=== PATIENT | female | born 1995 | race Hispanic/Latino ===

== ENCOUNTER 2024-10-28 10:00 | Emergency (ER) | payer SELFPAY ==
[2024-10-28] MEDS ORDERED: FLUORESCEIN SODIUM 1 MG/WRAP ONE ×2 (10:17→10:30)
[2024-10-28] MEDS ORDERED: TETRACAINE HCL 0.5% 4ML OPTH ONE (10:17)
--- NOTE | 2024-10-28 10:45 | EDPHYS ---
Physician Documentation [facility] Name: Danuta Mccall Age: 29 yrs Sex: Female : 1995 Arrival Date: 10/28/2024 Time: 10:00 Bed 13 Private MD: ED Physician Ben Elizondo HPI: 10/28 10:06 This 29 yrs old Female presents to ER via Unassigned with complaints of eye kb pain. 10:06 Pt is a 29 year old female who presents for pain, burning to both eyes that started kb last night. Reports watery eyes. States she may have scratched her right eye when she took her contact out, then it started getting red and painful. States the redness and irritation has spread to left eye this morning. Historical: - Allergies: 10:13 No Known Allergies; hb - Home Meds: 10:13 None [Active]; hb - PMHx: 10:13 None; hb - PSHx: 10:13 None; hb - Immunization history:: Adult Immunizations up to date. - Infectious Disease History:: Denies. - Social history:: Smoking status: Reported history of juuling and/or vaping. ROS: 10:43 Constitutional: As per HPI kb Exam: 10:43 Constitutional: This is a well developed, well nourished patient who is awake, alert, kb and in no acute distress. Head/Face: Normocephalic, atraumatic. ENT: Moist Mucous membranes Cardiovascular: Regular rate Respiratory: Respirations even and unlabored. No increased work of breathing. Talking in full sentences Skin: Warm, dry with normal turgor. Normal color. MS/ Extremity: Pulses equal, no cyanosis. Neurovascular intact. Full, normal range of motion. Neuro: Awake and alert, GCS 15, oriented to person, place, time, and situation. 10:43 Eyes: Periorbital structures: swelling, that is mild, on the right upper eyelid and right lower eyelid, Pupils: equal, round, and reactive to light and accomodation, Extraocular movements: intact throughout, Conjunctiva: injected, bilaterally, right worse than left, Corneas: abrasion, that is small, on the right, at 7 o'clock, foreign body, is not appreciated, a fluorescein strip employed to appreciate the findings, Vital Signs: 10:11 BP 132 / 95; Pulse 78; Resp 16; Temp 98.2(O); Pulse Ox 100% on R/A; Weight 72.57 kg; hb Height 5 ft. 4 in. ; Pain 10/10; 10:58 BP 128 / 90; Pulse 72; Resp 18; Pulse Ox 99% ; ko1 10:11 Body Mass Index 27.46 (72.57 kg, 162.56 cm) hb 10:11 Pain Scale: Adult hb MDM: 10:03 Medical Screening Exam initiated kb 10:43 Differential diagnosis: Corneal abrasion of Corneal ulcer of Foreign body in Acute kb iritis of Acute glaucoma in Data reviewed: vital signs, nurses notes. Historians other than the Patient: Parent: mother. Counseling: I had a detailed discussion with the patient and/or guardian regarding the historical points, exam findings, and any diagnostic results supporting the discharge/admit diagnosis, the need for outpatient follow up, an opthalmologist, to return to the emergency department if symptoms worsen or persist or if there are any questions or concerns that arise at home. 10/28 10:13 Order name: Eye Tray; Complete Time: 10:23 kb 10/28 10:13 Order name: Fluoresene Opth strip; Complete Time: 10:24 kb Administered Medications: 10:47 Drug: Tetracaine Ophthalmic Drops 0.5 % 1 drops Ophthalmic once {Note: given by fernanda gutierrez.} Route: Ophthalmic; Site: right eye; 10:48 Drug: diphenhydrAMINE PO 25 mg PO once Route: PO; ko1 11:00 Follow up: Response: No adverse reaction; Medication administered at discharge. ko1 10:48 Drug: Famotidine PO 20 mg PO once Route: PO; ko1 11:00 Follow up: Response: No adverse reaction; Medication administered at discharge. ko1 Disposition Summary: 10/28/24 10:44 Discharge Ordered Notes: Location: Home Condition: Stable Diagnosis - Injury of conjunctiva and corneal abrasion without foreign body, right eye kb - Unspecified acute conjunctivitis, bilateral kb Followup: kb - With: Emergency Department - When: As needed - Reason: Worsening of condition Followup: kb - With: Private Physician - When: 2 - 3 days - Reason: Recheck today's complaints, Continuance of care, Re-evaluation by your physician Discharge Instructions: - Discharge Summary Sheet kb - How to Use Eye Drops and Eye Ointments kb - Corneal Abrasion, [id number] kb - Bacterial Conjunctivitis, Adult, [id number] kb Forms: - Medication Reconciliation Form kb - Antibiotic Education kb - Prescription Opioid Use kb - Patient Portal Instructions kb - Leadership Thank You Letter kb Prescriptions: - Vigamox 0.5 % Ophthalmic Drops - instill 1 drop OPHTHALMIC route every 8 hours for 7 days; 5 milliliter; kb Refills: 0, Product Selection Permitted Signatures: Asuncion Cabrera FNP-Lianne SALOMON-Lisa Mckeon, RN RN Carine Roy, RN RN ko1 Corrections: (The following items were deleted from the chart) 10:43 10:06 Pt is a 29 year old female who presents for pain, burning to both eyes that kb started last night. Reports watery eyes. States she may have scratched her eyes when she took out her contacts. . kb
--- NOTE | 2024-10-28 10:45 | ER ---
Nurse's Notes [facility] [place], [place] Name: Danuta Mccall Age: 29 yrs Sex: Female : 1995 Arrival Date: 10/28/2024 Time: 10:00 Bed 13 Private MD: Diagnosis: Injury of conjunctiva and corneal abrasion without foreign body, right eye;Unspecified acute conjunctivitis, bilateral Presentation: 10/28 10:11 Chief complaint: Headache, bilateral eye pain and burning x 2 days. Mild right hb periorbital swelling and clear drainage noted form bilateral eyes. Coronavirus screen: At this time, the client does not indicate any symptoms associated with coronavirus-19. Ebola Screen: No symptoms or risks identified at this time. Mechanism of Injury: No Mechanism of Injury. The patient denies any loss of vision. Initial Sepsis Screen: Does the patient meet any 2 criteria? No. Patient's initial sepsis screen is negative. Does the patient have a suspected source of infection? No. Patient's initial sepsis screen is negative. Risk Assessment: Do you want to hurt yourself or someone else? Patient reports no desire to harm self or others. Onset of symptoms was October 27, 2024. 10:11 Method Of Arrival: Ambulatory hb 10:11 Acuity: [place] 4 hb Historical: - Allergies: 10:13 No Known Allergies; hb - Home Meds: 10:13 None [Active]; hb - PMHx: 10:13 None; hb - PSHx: 10:13 None; hb - Immunization history:: Adult Immunizations up to date. - Infectious Disease History:: Denies. - Social history:: Smoking status: Reported history of juuling and/or vaping. Screenin:58 [facility] ED Fall Risk Assessment (Adult) History of falling in the last 3 months, ko1 including since admission No falls in past 3 months (0 pts) Confusion or Disorientation No (0 pts) Intoxicated or Sedated No (0 pts) Impaired Gait No (0 pts) Mobility Assist Device Used No (0 pt) Altered Elimination No (0 pt) Score/Fall Risk Level 0 - 2 = Low Risk Oriented to surroundings, Maintained a safe environment, Educated pt \T\ family on fall prevention, incl call for assistance when getting out of bed, Assessed \T\ reinforced patient's understanding of fall precautions, Hourly rounding (assess needs \T\ fall precautionary measures) done. Abuse screen: Denies threats or abuse. Denies injuries from another. Nutritional screening: No deficits noted. Tuberculosis screening: No symptoms or risk factors identified. Assessment: 10:35 General: Appears in no apparent distress. uncomfortable, Behavior is calm, cooperative, ko1 appropriate for age. Pain: Complains of pain in right eye. Neuro: No deficits noted. Cardiovascular: No deficits noted. Respiratory: No deficits noted. GI: No deficits noted. : No deficits noted. No signs and/or symptoms were reported regarding the genitourinary system. EENT: Eyes Sclera/Cornea. Derm: No deficits noted. No signs and/or symptoms reported regarding the dermatologic system. Musculoskeletal: No deficits noted. No signs and/or symptoms reported regarding the musculoskeletal system. Vital Signs: 10:11 BP 132 / 95; Pulse 78; Resp 16; Temp 98.2(O); Pulse Ox 100% on R/A; Weight 72.57 kg; hb Height 5 ft. 4 in. ; Pain 10/10; 10:58 BP 128 / 90; Pulse 72; Resp 18; Pulse Ox 99% ; ko1 10:11 Body Mass Index 27.46 (72.57 kg, 162.56 cm) hb 10:11 Pain Scale: Adult hb ED Course: 10:03 Patient arrived in ED. ra3 10:03 Asuncion Cabrera FNP-C is PHCP. kb 10:03 Ben Elizondo MD is Attending Physician. kb 10:13 Triage completed. hb 10:13 Arm band placed on. hb 10:20 Carine Roy, FRANCISCO JAVIER is Primary Nurse. ko1 10:30 Patient has correct armband on for positive identification. Bed in low position. Call ko1 light in reach. Side rails up X2. Provided Education on: meds. Pulse ox on. NIBP on. Door closed. Noise minimized. Lights dimmed. Warm blanket given. Pillow given. 10:30 No provider procedures requiring assistance completed. Patient did not have IV access ko1 during this emergency room visit. Administered Medications: 10:47 Drug: Tetracaine Ophthalmic Drops 0.5 % 1 drops Ophthalmic once {Note: given by fernanda gutierrez.} Route: Ophthalmic; Site: right eye; 10:48 Drug: diphenhydrAMINE PO 25 mg PO once Route: PO; ko1 11:00 Follow up: Response: No adverse reaction; Medication administered at discharge. ko1 10:48 Drug: Famotidine PO 20 mg PO once Route: PO; ko1 11:00 Follow up: Response: No adverse reaction; Medication administered at discharge. ko1 Medication: 10:58 VIS not applicable for this client. ko1 Outcome: 10:44 Discharge ordered by . betito 11:01 Discharged to home ambulatory, with family, ko1 11:01 Condition: stable 11:01 Discharge instructions given to patient, family, Instructed on discharge instructions, follow up and referral plans. medication usage, Demonstrated understanding of instructions, follow-up care, medications, Prescriptions given X , :01 Patient left the ED. ko1 Signatures: Asuncion Cabrera, ECOLOGICAL RISK ASSESSOR-C [facility]-Lisa Mckeon, RN FRANCISCO JAVIER Carine Roy RN RN ko1 Loida Beckham ra3
[2024-10-28] MEDS ORDERED: DIPHENHYDRAMINE 25 MG TAB/CAP ONE (10:49)
[2024-10-28] MEDS ORDERED: FAMOTIDINE 20 MG TAB ONE (10:50)
[2024-10-28 11:24] VITALS: TEMP 98.2
[2024-10-28 11:25] VITALS: BP 128/90; O2SAT 99
== END 2024-10-28 11:01 | disposition home or self-care (01) ==
LOC: ER 10:00
DX: H10.33 Unspecified acute conjunctivitis, bilateral (principal); S05.01XA Injury of conjunctiva and corneal abrasion without foreign body, right eye, initial encounter
CPT/HCPCS: 99283